=== PATIENT | female | born 1965 | race Caucasian/White ===

== ENCOUNTER 2020-05-15 09:01 | Inpatient (IN) ==
[2020-05-10 10:42] LABS: Basophils # 0.1 10*3/uL (0.0-0.2); Basophils % 0.8 % (0.0-0.8); Eosinophils # 0.1 10*3/uL (0.0-0.87); Eosinophils % 0.5 % (0.00-10.9); Hematocrit 39.2 VOL% (35.7-47.0); Hemoglobin 13.1 GM/DL (12.0-16.0); Immature Granulocytes % 0.8 %; Immature Granulocytes Absolute 0.14 #; Lymphocytes # 4.1 10*3/uL (1.4-4.0); Lymphocytes % 24.5 % (21.3-54.2); Mean Corpuscular HGB Conc 33.4 GM/DL (32-36); Mean Corpuscular Volume 84.8 FL (87-102); Mean Platelet Volume 9.2 FL (9.6-12.0); Neutrophils % 67.4 % (38.7-73.9); Platelet Count 400 T/CUMM (130-400); Red Blood Count 4.62 MC/CUMM (3.8-5.5); Red Cell Distribution Width 13.9 % (9.3-17.3); White Blood Count 16.9 T/CUMM (4-12)
[2020-05-10 10:56] LABS: Apearance,Urine CLEAR (Clear); Bacteria,Urine Occasional /HPF (Few); Bilirubin,Urine Negative (Negative); Blood, Urine Negative (Negative); Glucose,Urine (UA) Negative (Negative); Ketones,Urine Negative (Negative); Nitrite,Urine Negative (Negative); Protein,Urine Negative; Squamous Epithelial Cell,Urine Occasional /HPF (0-10); Urine Color Straw (Yellow); Urine Specific Gravity 1.008 (1.001-1.035); Urine Urobilinogen < 2.0 EU/DL (0.2-1.0)
[2020-05-10 11:03] LABS: Eosinophils 1 % (0-10); Hypochromasia 1+; Lymphocytes 18 % (20-55); Microcytosis 1+; Platelet Estimate Adequate; Segmented Neutrophils 73 % (50-85); Total Cells Counted 100
[2020-05-10 11:12] LABS: Alanine Aminotransferase 14 U/L (13-56); Albumin 3.8 G/DL (3.4-5.0); Alkaline Phosphatase 58 U/L (45-117); Aspartate Amino Transferase 10 U/L (0-37); Bilirubin,Total < 0.39 MG/DL (0.2-1.0); Blood Urea Nitrogen 19 MG/DL (7-18); Calcium 9.2 MG/DL (8.5-10.1); Estimated Glom Filtration Rate 105 ML/MIN; Glucose 88 MG/DL (74-106); HDL Cholesterol 41 MG/DL (40-60); Risk Ratio 4.12; Total Protein 7.7 G/DL (6.4-8.3); Triglycerides 246 MG/DL (2-150); VLDL CHOLESTEROL 49.2 MG/DL
[2020-05-10 11:58] LABS: HIV Antigen/Antibody Result Nonreactive (Nonreactive)
[~2020-05-15 09:01] MED LIST: CLINDAMYCIN INJ 900 MG in PREMIX 1 EACH IV ONE
[2020-05-15] MEDS ORDERED: LACTATED RINGERS 1,000 ML IV SCH ×2 (10:30→16:30)
[2020-05-15] MEDS ORDERED: CLINDAMYCIN INJ 50 ML IV ONE (10:31)
[2020-05-15] MEDS ORDERED: FAMOTIDINE 20 MG TABLET PO ONE (11:32)
[2020-05-15] MEDS ORDERED: DIAZEPAM 5 MG TABLET PO ONE (11:32)
[2020-05-15] MEDS ORDERED: METOCLOPRAMIDE 10 MG/2 ML VIAL IV STA (13:49)
[2020-05-15] MEDS ORDERED: METOCLOPRAMIDE 10 MG/2 ML VIAL ONE (13:51)
[2020-05-15] MEDS ORDERED: ONDANSETRON 4 MG/2 ML VIAL IV PRN (16:06)
[2020-05-15] MEDS ORDERED: BISACODYL 10 MG SUPP RECTAL PRN (16:09)
[2020-05-15] MEDS ORDERED: MAGNESIUM HYDROXIDE SUSP 30 ML UDCUP PO PRN (16:09)
[2020-05-15] MEDS ORDERED: ACETAMINOPHEN 325 MG TABLET PO PRN (16:09)
[2020-05-15] MEDS ORDERED: ONDANSETRON 4 MG/2 ML VIAL ONE ×2 (16:09→16:16)
[2020-05-15] MEDS ORDERED: BENZOCAINE/MENTHOL LOZENGE 18/BOX PO PRN (16:09)
[2020-05-15] MEDS ORDERED: IBUPROFEN 800 MG TABLET PO PRN (16:09)
[2020-05-15] MEDS ORDERED: DOCUSATE SODIUM 100 MG CAPSULE PO PRN (16:09)
[2020-05-15] MEDS ORDERED: HYDROmorphone 2 MG/1 ML VIAL ONE (16:12)
[2020-05-15] MEDS ORDERED: propofoL 200 MG/20 ML VIAL IV ONE (16:15)
[2020-05-15] MEDS ORDERED: MIDAZOLAM 2 MG/2 ML VIAL ONE (16:15)
[2020-05-15] MEDS ORDERED: DEXAMETHASONE 4 MG/1 ML VIAL ONE (16:15)
[2020-05-15] MEDS ORDERED: fentaNYL 100 MCG/2 ML VIAL ONE (16:15)
[2020-05-15] MEDS: HYDROmorphone 2 MG/1 ML VIAL IV PRN ×4 (16:15→16:42)
[2020-05-15] MEDS ORDERED: SEVOFLURANE 1 UNIT/15 MINUTE INH ONE (16:15)
[2020-05-15] MEDS ORDERED: LIDOCAINE 2% 5 ML VIAL ONE (16:15)
[2020-05-15] MEDS ORDERED: ROCURONIUM 100 MG/10 ML VIAL IV ONE (16:16)
[2020-05-15] MEDS ORDERED: LACTATED RINGERS 1,000 ML IV ONE (16:16)
[2020-05-15] MEDS ORDERED: GLYCOPYRROLATE 0.4 MG/2 ML VIAL ONE (16:16)
[2020-05-15] MEDS ORDERED: ACETAMINOPHEN 1,000 MG/100 ML VIAL IV ONE (16:16)
[2020-05-15] MEDS ORDERED: NEOSTIGMINE 10 MG/10 ML VIAL ONE (16:16)
[2020-05-15] MEDS ORDERED: LABETALOL 100 MG/20 ML VIAL IV ONE (16:16)
[2020-05-15 17:04] LABS: Apearance,Urine CLOUDY (Clear); Bilirubin,Urine Negative (Negative); Blood, Urine Small mg/dL (Negative); Glucose,Urine (UA) Negative (Negative); Hyaline Casts,Urine 57 /LPF (0-3); Ketones,Urine Negative (Negative); Mucus,Urine Many /LPF (Occasional); Nitrite,Urine Negative (Negative); Protein,Urine 100 MG/DL; RBC,Urine 19 /HPF (0-4); Squamous Epithelial Cell,Urine Occasional /HPF (0-10); Urine Color Yellow (Yellow); Urine Specific Gravity 1.016 (1.001-1.035); Urine Urobilinogen < 2.0 EU/DL (0.2-1.0); WBC,Urine 1 /HPF (0-6)
[2020-05-15] MEDS: ONDANSETRON 4 MG/2 ML VIAL IV PRN (19:55)
[2020-05-15] MEDS ORDERED: SIMETHICONE CHEW 80 MG TABLET PO PRN (21:46)
[2020-05-15] MEDS ORDERED: ceFAZolin 2,000 MG in PREMIX 1 EACH IV SCH (22:09)
[2020-05-15] MEDS ORDERED: HYDROmorphone 2 MG/1 ML VIAL IV PRN (22:33)
[2020-05-15] MEDS: CLINDAMYCIN INJ 900 MG in PREMIX 1 EACH IV SCH (22:40)
[2020-05-16] MEDS: ONDANSETRON 4 MG/2 ML VIAL IV PRN (00:22)
[2020-05-16 06:19] LABS: Basophils % 0.2 % (0.0-0.8); Hematocrit 34.8 VOL% (35.7-47.0); Immature Granulocytes % 0.6 %; Lymphocytes # 1.4 10*3/uL (1.4-4.0); Lymphocytes % 8.1 % (21.3-54.2); Mean Corpuscular HGB Conc 34.5 GM/DL (32-36); Mean Corpuscular Volume 82.9 FL (87-102); Monocytes % 5.5 % (1.7-12.7); Neutrophils % 85.6 % (38.7-73.9); Platelet Count 358 T/CUMM (130-400); Red Cell Distribution Width 13.8 % (9.3-17.3); White Blood Count 17.6 T/CUMM (4-12)
[2020-05-16] MEDS: CLINDAMYCIN INJ 900 MG in PREMIX 1 EACH IV SCH (06:46)
[2020-05-16] MEDS ORDERED: BISACODYL 10 MG SUPP RECTAL ONE (10:09)
[2020-05-16] MEDS ORDERED: MAGNESIUM CITRATE 300 ML BOTTLE PO PRN (10:12)
[2020-05-16] MEDS: oxyCODONE/ACETAMINOPHEN 5-325 MG TABLET PO PRN ×4 (10:50→22:35)
[2020-05-16] MEDS ORDERED: ONDANSETRON 4 MG TABLET PO PRN (14:10)
[2020-05-16] MEDS ORDERED: tiZANidine 4 MG TABLET PO PRN (22:00)
[2020-05-16] MEDS: PANTOPRAZOLE 40 MG TABLET PO SCH (22:35)
[2020-05-16] MEDS: DICYCLOMINE 20 MG TABLET PO SCH (22:44)
[2020-05-16] MEDS: SUCRALFATE 1 GM TABLET PO SCH (22:45)
[2020-05-16] MEDS: GABAPENTIN 300 MG CAPSULE PO SCH (22:47)
[2020-05-16] MEDS: HydrOXYzine PAMOATE 50 MG CAPSULE PO SCH (22:48)
[2020-05-17] MEDS: oxyCODONE/ACETAMINOPHEN 5-325 MG TABLET PO PRN (08:57)
[2020-05-17] MEDS: SUCRALFATE 1 GM TABLET PO SCH ×2 (08:57→13:13)
[2020-05-17] MEDS: DICYCLOMINE 20 MG TABLET PO SCH (08:57)
[2020-05-17] MEDS: HydrOXYzine PAMOATE 50 MG CAPSULE PO SCH (08:57)
[2020-05-17] MEDS: PANTOPRAZOLE 40 MG TABLET PO SCH (08:57)
[2020-05-17] MEDS: GABAPENTIN 300 MG CAPSULE PO SCH (08:57)
[2020-05-17 10:39] VITALS: BP 133/75
== END 2020-05-17 12:15 | disposition home or self-care (01) | DRG 513 ==
LOC: N.OR 09:01 → N.SDSINP 09:46 → N.OB 16:53
PROVIDERS: ADMIT Obstetrics & Gynecology; ATTEND Obstetrics & Gynecology